=== PATIENT | female | born 1950 | race Caucasian/White ===

== ENCOUNTER 2020-03-21 10:04 | Emergency (ER) | payer MEDICARE, SELFPAY ==
[2020-03-21 11:22] VITALS: BP 176/65; PULSE 75; RESP 16; TEMP 36.3; O2SAT 100; BMI 21.9
--- NOTE | 2020-03-21 12:06 | ED.BACK ---
HPI - Back Pain/Injury General Chief Complaint: Back Pain/Injury Stated Complaint: back pain Time Seen by Provider: 03/21/20 11:51 Source: patient Mode of arrival: ambulatory History of Present Illness HPI Narrative: 70-year-old female with a past medical history of hypertension, emphysema on home O2 to the ED complaining left-sided low back pain radiating down left lower extremity since this morning. Reports associated tingling. Denies known injury/trauma, falls, or heavy lifting. Denies weakness, numbness, urinary incontinence or retention, fever Related Data Previous Rx's Medication Instructions Recorded acetaminophen [Tylenol Extra 500 mg PO Q6H PRN #20 tab 03/21/20 Strength] cyclobenzaprine 5 mg PO Q8H PRN 5 Days #14 tab 03/21/20 lidocaine [Lidoderm] 1 patch TOPICAL DAILY PRN #30 ea 03/21/20 MDD remove after 12 hours naproxen 500 mg PO BID PRN 10 Days #20 tab 03/21/20 Allergies Allergy/AdvReac Type Severity Reaction Status Date / Time No Known Allergies Allergy Unverified 11/30/19 16:17 [No Known Allergies*] Review of Systems Review of Systems: Constitutional: No Weight loss, No Fever, No Chills Gastrointestinal:No Abdominal pain Genitourinary: No Dysuria, No Urinary Incontinence/retention, No Urgency, No Flank Pain Musculoskeletal: +back pain, No Myalgias, No Joint Swelling Skin: No Skin Lesions, No rash Neuro: No Weakness,+tingling, No Paresthesias Yes all other systems are reviewed and are negative PMFSH Past Medical History Attestation statement: The following information was validated with the patient. Medical History (Updated 03/21/20 @ 12:09 by ODELL Ronquillo) Emphysema of lung HTN (hypertension) Surgical History (Updated 03/21/20 @ 11:27 by Sumaya Corona) H/O heart bypass surgery Social History Social History Advance Directives: No Advance Directives Information Provided: Yes Physical Exam Vital Signs: Vital Signs: Last Vital Signs Temp 97.4 F 03/21/20 11:22 Pulse 75 03/21/20 11:22 Resp 16 03/21/20 11:22 BP 176/65 H 03/21/20 11:22 Pulse Ox 100 03/21/20 11:22 Body Mass Index 21.9 Const: General: cooperative and healthy appearing Orientation/consciousness: patient oriented x3 Limitations: no limitations HENMT: Head: Yes normal to inspection Ears: hearing grossly normal bilaterally General nose exam: Normal external nose present Face and sinus: Yes normal facial exam Eyes: General: appearance normal, both eyes and all related structures EOM: EOMs intact bilaterally Neck: Neck: Yes normal visual inspection, Yes full ROM and Yes no meningeal signs Resp: Effort & Inspection: normal respiratory effort Cardio: Rate: regular rate Peripheral pulses: dorsalis pedis present : General: Yes no CVA tenderness Back/Spine/Pelvis: Other: No midline thoracic/lumbar spinous tenderness. + left-sided lower lumbar MSK tenderness/left buttock tenderness Back: no CVA tenderness Skin: Rashes: no rashes Wounds: no wounds Neuro: Other: No saddle anesthesia. Sensation intact to light touch. Strength intact throughout General: patient oriented x3, gait normal, tone normal, moves all extremities and no meningeal signs Gait exam (Neuro): Normal gait present Motor exam (neuro): 5/5 motor strength present throughout Extrem: General: Yes normal to inspection MDM - Back Pain/Injury MDM Narrative Medical decision making narrative: On exam VSS, NAD/well-appearing, no midline spinous tenderness, no red flag symptoms or saddle anesthesia. Ambulating with steady gait. Likely MSK pain/sciatica. Low concern for cauda equina/cord compression or fracture Discharge Plan Discharge Clinical Impression: Sciatica Qualifiers: Laterality: left Qualified Code(s): M54.32 - Sciatica, left side Patient Disposition: Home, Self-Care Instructions: Sciatica (ED) Additional Instructions: Your pain is likely musculoskeletal Flexeril is a muscle relaxer, take at night as it makes you drowsy, do not drive, drink alcohol, or operate machinery while taking it Naproxen as an anti-inflammatory / pain medication, take with food Lidoderm patches are numbing patches, apply to painful area In addition take Tylenol at home If symptoms persist or worsen, pain becomes unbearable, you developed urinary retention or incontinence, or weakness return to the ED Prescriptions: New acetaminophen [Tylenol Extra Strength] 500 mg tablet 500 mg PO Q6H PRN (Reason: pain or fever) Qty: 20 RF: 0 lidocaine [Lidoderm] 5 % adhesive patch,medicated 1 patch topical DAILY MDD remove after 12 hours PRN (Reason: pain) Qty: 30 RF: 0 naproxen 500 mg tablet 500 mg PO BID PRN (Reason: pain) 10 Days Qty: 20 RF: 0 cyclobenzaprine 5 mg tablet 5 mg PO Q8H PRN (Reason: pain (scale score 7-10)) 5 Days Qty: 14 RF: 0 Referrals: Gabby Henderson MD [Primary Care Provider] - 2 days
[2020-03-21] MEDS: Cyclobenzaprine HCl 5 MG TABLET PO (12:20)
[2020-03-21] MEDS: Ketorolac Tromethamine 15 MG/ML VIAL IM (12:21)
== END 2020-03-21 12:33 | disposition home or self-care (01) ==
PROVIDERS: Emergency Provider Emergency Medicine Emergency Medical Services; PCP Family Medicine
DX: M54.42 Lumbago with sciatica, left side (principal); I10 Essential (primary) hypertension; J43.9 Emphysema, unspecified; Z99.81 Dependence on supplemental oxygen
CPT/HCPCS: 96372; 99283; 99284; J1885